=== PATIENT | female | born 1950 ===

== ENCOUNTER 2024-08-29 08:30 | Inpatient (IN) | payer OTHER ==
[~2024-08-29] VITALS: Ht 162.6 cm; Wt 85.3 kg
[2024-08-29 09:31] LABS: PH,URINE 5.5 (5.0-8.0); URINE APPEARANCE Clear; URINE BILIRRUBIN Negative (NEGATIVE); URINE BLOOD Trace; URINE COLOR Yellow; URINE GLUCOSE Negative (NEGATIVE); URINE KETONE Trace (NEGATIVE); URINE LEUKOCYTE Trace; URINE NITRATE Negative; URINE PROTEIN Negative (NEGATIVE); URINE UROBILINOGEN 0.2 E.U./dl
[2024-08-29 09:35] LABS: URINE BACTERIA 62.4 uL (0.0-1933); URINE EPITHELIAL CELLS 10.4 uL (0.0-38.8); URINE RBC 29.9 uL (0.0-20.8)
[2024-08-29 09:52] LABS: INR 0.96; PARTIAL THROMBOPLASTIN TIME 25.3 SECONDS (22.0-34.0); PROTHROMBIN TIME 10.5 SECONDS (9.0-11.5)
[2024-08-29 09:56] LABS: HEMATOCRIT 39.7 % (36.0-45.00); MEAN CORPUSCULAR HEMOGLOBIN 28.7 pg (27.00-32.0); MEAN CORPUSCULAR HGB CONC 32.6 g/dl (32.0-36.0); PLATELET COUNT 173 K/uL (150-450); RED BLOOD COUNT 4.51 M/uL (4.00-6.00)
[2024-08-29 10:01] LABS: URINE CAST 0.29 uL (0.0-1.40)
[2024-08-29] MEDS ORDERED: TOPROL XL25 M1 PO (10:18)
[2024-08-29] MEDS ORDERED: MONTELUKAST SOD10 MG PO (10:18)
[2024-08-29] MEDS ORDERED: HORIZANT300 MG PO (10:19)
[2024-08-29] MEDS ORDERED: ZEGERID 40 MG1 EACH PO (10:19)
[2024-08-29] MEDS ORDERED: EFFEXOR XR37.5 MG PO (10:19)
[2024-08-29] MEDS ORDERED: ANTIVERT PO (10:21)
[2024-08-29 10:22] LABS: ALBUMIN 3.6 gm/dL (3.4-5.0); BILIRUBIN TOTAL 0.58 mg/dL (0.3-1.2); CALCIUM 9.4 mg/dL (8.5-10.1); CHOL HDL RATIO 2.9 (0-5.0); CREATININE SERUM 0.73 mg/dL (0.55-1.02); GFR 77.72; GLOBULINA 2.9 G/DL (2.4-3.5); POTASSIUM 4.27 mEq/L (3.5-5.1); TOTAL PROTEIN 6.5 gm/dL (6.4-8.2)
[2024-08-29] MEDS ORDERED: DICY20TA PO (10:22)
[2024-08-29] MEDS ORDERED: ROSUVASTATIN CAL5 MG PO (10:22)
[2024-08-29] MEDS ORDERED: PEPCID AC20 MG PO (10:22)
[2024-08-29] MEDS ORDERED: CLONAZEPAM0.5 MG PO (10:22)
[2024-08-29] MEDS ORDERED: DETROL2 MG PO (10:23)
[2024-08-29] MEDS ORDERED: ONDANSETRON ODT4 MG PO (10:23)
[2024-08-29 10:28] VITALS: BP 123/66
[2024-08-29 13:43] LABS: RH POSITIVE
[2024-08-29] MEDS ORDERED: ATIVAN0.5 M1 PO (13:46)
[2024-09-05] MEDS ORDERED: VANCOMYCIN HCL 1,000 MG VIAL ONE ×3 (06:13→19:50)
[2024-09-05] MEDS ORDERED: TRANEXAMIC ACID 100MG/1ML (1000MG) AMPUL IV ONE (07:03)
[2024-09-05] MEDS ORDERED: POVIDONE-IODINE 118 ML BOTT TOP ONE (07:03)
[2024-09-05] MEDS ORDERED: BUPIVACAINE HCL 0.5% 50ML VIAL ONE (07:03)
[2024-09-05] MEDS ORDERED: KETOROLAC TROMETHAMINE 60 MG VIAL IM ONE (07:03)
[2024-09-05] MEDS ORDERED: ISOPROPYL ALCOHOL 30 ML OUNCE TOP ONE (07:04)
[2024-09-05] MEDS ORDERED: LIDOCAINE HCL 1%/EPINEPHRINE 20ML VIAL IJ ONE (07:04)
[2024-09-05] MEDS ORDERED: SODIUM CHLORIDE 0.45 % 1,000 ML IV SCH (09:15)
[2024-09-05] MEDS ORDERED: MORPHINE SULFATE 4 MG/ML CARTRIDGE IV PRN (09:15)
[2024-09-05] MEDS ORDERED: OxyCODONE HCL 5 MG TABLET (ROXICODONE) PO PRN (09:15)
[2024-09-05] MEDS ORDERED: ONDANSETRON HCL 2 MG/ML VIAL IV PRN (09:15)
[2024-09-05] MEDS ORDERED: GABAPENTIN 300 MG CAPSULE PO SCH (09:16)
[2024-09-05] MEDS ORDERED: MORPHINE SULFATE 4 MG/ML VIAL IV ONE ×3 (10:10→15:25)
[2024-09-05] MEDS ORDERED: ACETAMINOPHEN 500 MG GEL..CAP PO SCH (12:00)
[2024-09-05] MEDS ORDERED: ENALAPRILAT DIHYDRATE 1.25 MG/ML VIAL IV PRN (15:15)
[2024-09-05 17:14] VITALS: BP 133/68; O2SAT 99
[2024-09-05] MEDS ORDERED: VANCOMYCIN HCL 1,000 MG VIAL IV SCH (21:00)
[2024-09-05] MEDS ORDERED: VANCOMYCIN HCL 1,000 MG in 0.9 % SODIUM CHLORIDE 250 ML IV SCH (21:00)
[2024-09-06] MEDS ORDERED: VANCOMYCIN HCL 1,000 MG VIAL ONE ×2 (06:12→14:42)
[2024-09-06 07:06] LABS: HEMOGLOBIN 11.9 g/dL (12.0-15.00); MEAN CELL VOLUME 86.9 fL (80.00-100.00); MEAN CORPUSCULAR HEMOGLOBIN 28.6 pg (27.00-32.0); PLATELET COUNT 156 K/uL (150-450); RED BLOOD COUNT 4.15 M/uL (4.00-6.00); RED CELL DISTRIBUTION WIDTH 13.9 % (11.5-14.5)
[2024-09-06] MEDS ORDERED: PERCOCET 5-3251 EACH PO (07:37)
[2024-09-06] MEDS ORDERED: CIPRO500 MG PO (07:37)
[2024-09-06] MEDS ORDERED: ELIQUIS2.5 MG PO (07:37)
[2024-09-06 08:00] VITALS: BP 101/50; O2SAT 95
[2024-09-06] MEDS ORDERED: SENNOSIDES 1 TAB TABLET PO SCH (09:00)
[2024-09-06] MEDS ORDERED: APIXABAN 2.5 MG TABLET PO SCH (09:00)
[2024-09-06] MEDS ORDERED: METOPROLOL SUCCINATE 25 MG TAB.SR.24H PO SCH (09:00)
[2024-09-06] MEDS ORDERED: ONDANSETRON HCL 2 MG/ML VIAL IV ONE (11:45)
[2024-09-06] MEDS ORDERED: ONDANSETRON HCL 2 MG/ML VIAL IV PRN (12:00)
[2024-09-06 16:00] VITALS: BP 136/56; O2SAT 99
[2024-09-06] MEDS ORDERED: Cyanocobalamin/Mecobalamin 1 TAB.SL SL SCH (17:00)
[2024-09-06] MEDS ORDERED: SOD FERRIC GLUC COMPLX/SUCROSE 62.5 MG/5 ML AMPUL IV SCH (17:00)
[2024-09-06] MEDS ORDERED: VITAMIN B COMPLEX 1 EACH PO SCH (17:00)
[2024-09-07] VITALS: BP 114/68; O2SAT 95
[2024-09-07 05:27] LABS: HEMATOCRIT 30.4 % (36.0-45.00); MEAN CELL VOLUME 86.5 fL (80.00-100.00); MEAN CORPUSCULAR HGB CONC 33.4 g/dl (32.0-36.0); RED BLOOD COUNT 3.51 M/uL (4.00-6.00); RED CELL DISTRIBUTION WIDTH 13.8 % (11.5-14.5)
[2024-09-07 05:39] LABS: HEMOGLOBIN 10.1 g/dL (12.0-15.00); MEAN CORPUSCULAR HEMOGLOBIN 28.7 pg (27.00-32.0)
[2024-09-07] MEDS ORDERED: VANCOMYCIN HCL 1,000 MG VIAL ONE ×2 (07:07→16:28)
[2024-09-07 08:00] VITALS: BP 101/58; O2SAT 95
[2024-09-07] MEDS ORDERED: IRON FUM,PS/FOLIC ACID/VITC/B3 1 CAP CAPSULE PO SCH (09:00)
[2024-09-07 11:17] LABS: PLATELET COUNT 126 K/uL (150-450)
[2024-09-07 11:18] LABS: MANUAL PLATELET COUNT 150
[2024-09-07 16:00] VITALS: BP 106/71
== END 2024-09-07 22:07 | disposition home or self-care (01) | DRG 470 ==
LOC: O/R 09-05 05:12 → SURH 09-05 07:00 → SURG 09-05 14:37 → SURH 09-05 15:10
PROVIDERS: ADMIT Orthopaedic Surgery; ATTEND Orthopaedic Surgery
PROC: 0SUD07Z Supplement Left Knee Joint with Autologous Tissue Substitute, Open Approach (ICD-10-PCS; 2024-09-05)
PROC: 0SRD0J9 Replacement of Left Knee Joint with Synthetic Substitute, Cemented, Open Approach (ICD-10-PCS; principal; 2024-09-05 07:00)
DX: M17.12 Unilateral primary osteoarthritis, left knee (principal); D69.3 Immune thrombocytopenic purpura; D62 Acute posthemorrhagic anemia; M22.12 Recurrent subluxation of patella, left knee; I10 Essential (primary) hypertension; R11.0 Nausea; G47.30 Sleep apnea, unspecified; Z73.6 Limitation of activities due to disability